=== PATIENT | female | born 1955 | race Caucasian/White ===

== ENCOUNTER → 2016-11-26 | Outpatient (CLI) | payer OTHER ==
[~2016-11-26] VITALS: Ht 167.6 cm; Wt 83.9 kg
[~2016-11-26] MED LIST: CALTTAB PO; IBUP-232 PO; INSULIN HUMAN REGULAR 1,000 UNITS/10 ML VIAL SQ PRN; LACTATED RINGER'S 1000 ML IV SCH; METOPROLOL TARTRATE 25 MG TAB PO PRN; NAPR220T95 PO; PROPOFOL 200 MG/20 ML AMP IV ONE; SODIUM CHLORID 0.9% 500 ML IV SCH; ZANTTAB PO
[2016-11-26 10:07] VITALS: BP 152/82; PULSE 75; RESP 18; TEMP 97.9; O2SAT 96
[2016-11-26 12:18] VITALS: TEMP 97.5
[2016-11-26 12:30] VITALS: BP 127/73; PULSE 62; RESP 16; O2SAT 100
--- NOTE | 2016-11-26 12:52 | MR ---
cc: JOSE JUAN FERNÁNDEZ M.D., HARRY M.D. DATE: 11/26/2016 1955 PROCEDURE Panendoscopy with biopsies and colonoscopy performed by Dr. Vlad Gonzalez. The patient is an outpatient. 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 pylori infection. No documentation was done to confirm this. She says she felt a little bit better transiently after the therapy but symptoms have recurred. Most of the pain is occurring after eating. There has been no epigastric tenderness. Physical examination does reveal an epigastric bruit. Additionally screening colonoscopy, average risk. MEDICATIONS Sedation per anesthesiology. INSTRUMENTS The Pentax video gastroscope and colonoscope. PROCEDURE After obtaining written informed consent, the patient was placed in the left lateral decubitus position. Adequate sedation was administered. The video gastroscope was passed under direct vision through the oropharynx into the esophagus which appeared normal along its entire extent. The Z-line appeared normal at the GE junction at 39 cm. The gastric mucosa was examined carefully including views of the cardia and fundus with retroflexion. No mucosal lesions were noted. Gastric biopsies were taken to check for H. pylori, as it has been 4 weeks since completion of her triple therapy to treat H. pylori. She has only been taking Zantac intermittently since then. The pylorus, duodenal bulb and sweep appeared normal. The instrument was withdrawn. The stretcher was turned around. A digital rectal examination was performed. No lesions were noted, although the anal sphincter was significantly patulous. The colonoscope was placed into the anus and advanced through a very tortuous angulated colon to the cecum. The appendiceal orifice and ileocecal valve appeared normal. Upon withdrawal of the instrument the mucosal surfaces were well visualized (withdrawal time was 7 minutes). Mild scattered diverticulosis was noted but no neoplasms were seen. Retroflexion of the instrument in the rectum revealed no lesions. The instrument was withdrawn. The procedure was terminated. The patient tolerated it well and there were no apparent complications. Upon completion she was sedated and had normal stable vital signs. IMPRESSION 1. Normal esophageal mucosa. 2. Normal Z-line at the GE junction at 39 cm, normal gastric mucosa, biopsy taken to check for H. pylori infection. 3. Normal pylorus, duodenal bulb and sweep. 4. Colonoscopy to cecum through a long tortuous angulated colon. 5. Scattered diverticulosis. DISPOSITION The patient is to be observed per routine postprocedure protocol. She may return home, resume her prior diet and medications. A high-fiber diet is recommend because of the diverticulosis. We will contact her in several days with the histology report. We will schedule CT angiogram of the mesenteric vessels to evaluate for mesenteric vascular disease as a possible cause of her epigastric pain that is worse postprandially and may be associated with an epigastric bruit. Repeat colonoscopy is indicated in 10 more years. MD JULIO CESAR Gomes/NURY /12:24 PM /12:38 PM
--- NOTE | 2016-11-26 21:43 | EKG ---
Date Performed: 11/26/2016 Time Performed: 09:59:45 PTAGE: 61 years EKG: Sinus rhythm POSSIBLE RIGHT VENTRICULAR CONDUCTION DELAY BORDERLINE ECG NO PREVIOUS TRACING DOCTOR: Sylvain Samaniego Interpretating Date/Time 11/26/2016 21:42:06
== END ==
LOC: HEND 09:17
DX: K57.30 Diverticulosis of large intestine without perforation or abscess without bleeding (principal); R10.13 Epigastric pain; R09.89 Other specified symptoms and signs involving the circulatory and respiratory systems; Z01.810 Encounter for preprocedural cardiovascular examination
CPT/HCPCS: 00740; 43239; 45378; 88305; 88312; 93005; J7120